=== PATIENT | male | born 1975 | race Caucasian/White ===

== ENCOUNTER 2017-02-26 22:06 | Emergency (ER) | payer OTHER ==
[~2017-02-26] VITALS: Ht 177.8 cm; Wt 95.5 kg
[2017-02-26 22:11] VITALS: BP 122/75; PULSE 99; RESP 16; O2SAT 95
--- NOTE | 2017-02-26 23:49 | ED.REPORT ---
HPI-Extremity Problem Upper Date of Service Feb 26, 2017 ED Provider: Bandar Caldwell MD Patient is a 41-year-old male with no significant past medical history who presents to the emergency department with a sliver in his pinky. Just prior to arrival patient was cleaning his pine shelves doing housework when he got a piece of wood into his fifth digit. He has some swelling, throbbing and redness. He has no numbness or tingling, pain does not radiate. He sees a lump on ventral surface that appears to be the sliver almost poking through. He is not having any associated headache, shortness of breath, or chest pain. He acknowledges consumption of alcoholic beverages tonight. Nursing Notes Stated Complaint: SPLINTER IN PINKY RT HAND Chief Complaint: Extremity Trauma Nursing Notes Reviewed: Yes Allergies: Coded Allergies: No Known Allergies (Unverified , 02/26/17) General Time Seen by MD: 22:20 Chief Complaint Finger injury right 5 (sliver) Hx Obtained From: Patient Arrived By: Walk-in Onset Occurred: Just prior to arrival Context of Onset: EtOH use Symptom Duration: Constant Caused by: Accidental Past Medical History Past Medical History Seasonal allergies Past Surgical History ORIF right arm Family History No family history of bleeding or clotting disorders. Smoking History Never Smoker Social History Alcohol Use: "Social" Drug Use: Denies drug use Other Social History: Good social support Ambulatory Status Independent Review of Systems A comprehensive review of systems was conducted with the patient and found to be negative except as above in the History of Present Illness. Physical Exam Initial Vital Signs Vital Signs (First) Date Time Temp Pulse Resp B/P Pulse Ox O2 Delivery O2 Flow Rate FiO2 02/26/17 22:11 37.0 99 16 122/75 95 Room Air Initial VS: Reviewed General/Constitutional: Well-developed, Well-nourished Head / Eyes: Atraumatic, Normocephalic ENT: Mucous membranes moist, Conjunctiva normal, No scleral icterus Neck: Supple, Full range of motion Respiratory: No respiratory distress Cardiovascular: Regular rate & rhythm Lymphatic: No lymphadenopathy Lower Extremities: Vascular intact, Neuro intact, No swelling, No tenderness Skin: Warm, Dry, No cyanosis Neurologic: Alert, Oriented, Nonfocal Psychiatric: Mood/affect normal, Behavior normal, Normal thought content Swelling and tenderness over distal phalanges of right fifth digit. Medial cuticle line has small puncture wound, ventral surface of medial fifth digit has a lump with hardened area underneath it which is wooden sliver passing through without skin puncture. Procedures Laceration Management Time: 22:50 Procedure Performed by: ED resident Consent / Setup / Site Prep: Informed consent provided, Consent from patient , Hand hygiene observed, Stand sterile technique Location of Wound: Right fifth digit Wound Length: 1 cm Local Anesthesia: Lidocaine 1% Digital Block: No Wound Preparation: Other (ChloraPrep) Irrigation: 50 cc Foreign Body Explore / Removal: Explored for foreign body, Removed single Post-Procedure / Complications: Dressing applied, No complications, Condition improved, Tolerated procedure well, Patient stable Re-Eval/Medical Decision Med Decision/Clinical Course 41-year-old male with no significant past medical history presents to emergency department with wooden sliver in the right fifth digit in treating through the cuticle line been coming through medial ventral surface of the small finger. Local anesthesia in the form of 1% lidocaine without epinephrine was injected into the area. Incision was made with 15 blade and sliver was removed. Patient tolerated procedure well however after sliver was removed patient began to feel faint. Head of bed was lowered, patient was given water. He recovered quickly and had no further complications. Tdap vaccination was given. Patient was discharged home in stable condition with precautions of when to return and what infection may look like. He had no further questions. Discharge & Departure Impression: Primary Impression: Foreign body Disposition: Home Discharge Condition All VS Reviewed: Yes Condition: Stable Patient Instructions: Finger Laceration (ED) Additional Instructions: Thank you for entrusting us with your care today. Keep wound clean and dry. If you notice spreading redness or pus developing please call your primary care provider immediately. Return to the emergency department for fever, chills, with worsening finger pain and swelling. It was a pleasure meeting you today. Referrals: Caitlyn Coleman MD (PCP) Attending Statement As attending of record for this patient, I conducted an independent history and physical exam, and agree with the documentation as per the resident note, and as amended. copies to: Caitlyn Coleman MD, Erika R DO Feb 26, 2017 23:49 Bandar Caldwell MD Feb 27, 2017 08:03
[2017-02-27 00:24] VITALS: BP 114/77; PULSE 63; RESP 18; O2SAT 96
[2017-02-27] MEDS ORDERED: TdaP Vaccine 0.5 mL Inj IM ONE (00:30)
== END 2017-02-27 00:31 | disposition home or self-care (01) ==
LOC: SED 22:06
DX: S60.456A Superficial foreign body of right little finger, initial encounter (principal); W45.8XXA Other foreign body or object entering through skin, initial encounter; Y93.E9 Activity, other interior property and clothing maintenance; Y92.009 Unspecified place in unspecified non-institutional (private) residence as the place of occurrence of the external cause; Y99.8 Other external cause status; Z98.890 Other specified postprocedural states; Z23 Encounter for immunization